=== PATIENT | female | born 1990 | race African-American/Black ===

== ENCOUNTER 2025-05-30 15:45 | Emergency (ER) | payer OTHER, SELFPAY ==
[2025-05-30] MEDS ORDERED: HYDROcodone/Acetaminophen 5/325 mg Tablet ONE (16:22)
== END 2025-05-30 17:55 | disposition home or self-care (01) ==
LOC: CSHERS 15:45
DX: M54.50 Low back pain, unspecified (principal); V49.50XA Passenger injured in collision with unspecified motor vehicles in traffic accident, initial encounter; I10 Essential (primary) hypertension; F17.210 Nicotine dependence, cigarettes, uncomplicated
CPT/HCPCS: 72100; 99284